=== PATIENT | male | born 1980 | race Caucasian/White ===

== ENCOUNTER 2020-06-18 02:58 | Emergency (ER) | payer OTHER ==
[~2020-06-18 02:58] MED LIST: VIBRAMYCIN 100100 MG PO
== END 2020-06-18 05:30 | disposition left against medical advice (07) ==
LOC: ER1 02:58
DX: R60.0 Localized edema (principal); M79.89 Other specified soft tissue disorders; F17.210 Nicotine dependence, cigarettes, uncomplicated
CPT/HCPCS: 71046; 93005; 99283

== ENCOUNTER 2021-03-22 18:04 | Inpatient (IN) | payer OTHER ==
[~2021-03-22] VITALS: Ht 175.3 cm; Wt 96.6 kg
[2021-03-22 19:20] LABS: HEMOGLOBIN 10.6 gm/dl (14.0-17.5); RED BLOOD COUNT 3.61 M/UL (4.20-5.50); WHITE BLOOD COUNT 12.4 K/UL (4.5-11.0)
[2021-03-22 19:39] LABS: BUN/CREATININE RATIO 18 (0-10)
[2021-03-23 05:49] LABS: HEMOGLOBIN 10.9 gm/dl (14.0-17.5); RED BLOOD COUNT 3.62 M/UL (4.20-5.50)
[2021-03-23 06:40] LABS: BUN/CREATININE RATIO 16 (0-10)
--- NOTE | 2021-03-23 08:16 | NUR ---
CALLED CONSULT TO DR SONI THIS AM AT 8AM. LEFT BTX ABCESS
--- NOTE | 2021-03-23 22:25 | NUR ---
PATIENT INSISTING ON GETTING IN SHOWER. PATIENT ALSO REFUSED TO LET ME START A NEW IV ON HIM. PATIENT WAS INFORMED OF THE RISKS AND STILL INSISTED ON GETTING IN THE SHOWER BEFORE STARTING A NEW IV. PATIENT'S IS AT BEDSIDE AND IS HELPING HIM SHOWER.
--- NOTE | 2021-03-24 00:10 | NUR ---
PATIENT STATES THAT THE LAST TIME HE TOOK METH WAS ON 03/21/21.
--- NOTE | 2021-03-24 08:05 | NUR ---
PATIENT LEFT FLOOR PER SURGERY BY BED FOR PROCEDURE.
--- NOTE | 2021-03-24 09:59 | NUR ---
AT 0930 AM PATIENT RETURNS TO FLOOR PER SURGERY STAFF. YANA, WILL CONTINUE TO MONITOR
[2021-03-25] MEDS ORDERED: HYDROCODON-ACE1 EAC2 PO (09:14)
[2021-03-25] MEDS ORDERED: BACTRIM DS TAB1 EACH PO (10:44)
== END 2021-03-25 12:30 | disposition home or self-care (01) | DRG 603 ==
LOC: ER1 18:04 → PROG CARE 21:44 → CDU 21:44 → PROG CARE 03-23 03:00
PROVIDERS: Internal Medicine; Physician Assistant; Surgery; ADMIT Internal Medicine
PROC: 0J990ZZ Drainage of Buttock Subcutaneous Tissue and Fascia, Open Approach (ICD-10-PCS; principal; 2021-03-24 08:21)
DX: L03.317 Cellulitis of buttock (principal); F15.20 Other stimulant dependence, uncomplicated; Z20.822 Contact with and (suspected) exposure to COVID-19; F10.10 Alcohol abuse, uncomplicated; B19.20 Unspecified viral hepatitis C without hepatic coma; L02.31 Cutaneous abscess of buttock; F17.210 Nicotine dependence, cigarettes, uncomplicated
CPT/HCPCS: 36415; 72193; 80048; 80053; 80307; 83605; 83880; 85025; 87040; 87070; 87077; 87186; 87205; 96374; 96375; 99284; G0378; J1100; J1650; J1885; J2001; J2185; J2405; J2704; J3010; J3370; J3411; J3475; J7030; J7070; J7120; Q9967; U0002

== ENCOUNTER 2021-04-06 15:41 | Emergency (ER) | payer OTHER ==
[~2021-04-06 15:41] MED LIST changes: +BACTRIM DS TAB1 EACH PO; +HYDROCODON-ACE1 EAC2 PO
== END 2021-04-06 17:38 | disposition left against medical advice (07) ==
LOC: ER1 15:41
DX: L03.116 Cellulitis of left lower limb (principal); L03.115 Cellulitis of right lower limb; Z86.19 Personal history of other infectious and parasitic diseases; F17.210 Nicotine dependence, cigarettes, uncomplicated
CPT/HCPCS: 99282